=== PATIENT | female | born 1935 | race Caucasian/White ===

== ENCOUNTER → 2016-03-01 | Outpatient (CLI) | payer MEDICARE, OTHER ==
[~2016-03-01] MED LIST: ALPR0.5T PO; ASPI-983 PO; ATOR20TA66 PO; CALC-654 PO; CEFU250S PO; LAMO100T PO; LISI10TA2 PO; MAGN250T13 PO; MELA1TAB10 PO; METO-272 PO; MIDAZOLAM 5 MG/5 ML (VERSED) VIAL ONE; MULT-35 PO; NS (IVPB) 50 ML ONE; OMG1KC PO; QUET100T69 PO; REGADENOSON 0.4 MG/5 ML SYR (LEXISCAN) IV ONE; ceFAZolin 1,000 MG (ANCEF) VIAL ONE; fentaNYL INJECTION 100 MCG/2 ML AMP ONE
--- OUTSIDE RECORDS SUMMARY | 2016-03-01 08:24 | XMS REPORT ---
Author Author FUENTES DECKER Organization [employer] Address Unknown Phone Unavailable Care Team Providers Care Tongue Trimmer Name Role Phone FUENTES DECKER CP Unavailable Allergies No Known Allergies Problems Problem Type Condition Code Onset Dates Condition Status Problem Unspecified episodic mood disorder 296.90 Active Medications Medication Code System Code Instructions Start Date End Date Status Dosage Alprazolam [facility] [address]-11 0.5 MG Orally Once a day PRN anxiety. Melissa to sign for Taty April 18, 2014 1 tablet Results No Known Results Summary Purpose [employer] Submission
== END ==
LOC: CARD 08:18
PROVIDERS: ATTEND Internal Medicine Cardiovascular Disease
DX: I48.0 Paroxysmal atrial fibrillation (principal); I10 Essential (primary) hypertension; E78.2 Mixed hyperlipidemia; R07.9 Chest pain, unspecified; I65.23 Occlusion and stenosis of bilateral carotid arteries

== ENCOUNTER → 2016-03-17 | Outpatient (CLI) | payer MEDICARE, OTHER ==
[~2016-03-17] VITALS: Ht 160 cm; Wt 60.8 kg
[~2016-03-17] MED LIST changes: +CATHETER FLUSH 10 ML SYR IV PRN; -MIDAZOLAM 5 MG/5 ML (VERSED) VIAL ONE; -NS (IVPB) 50 ML ONE; -ceFAZolin 1,000 MG (ANCEF) VIAL ONE; -fentaNYL INJECTION 100 MCG/2 ML AMP ONE
[2016-03-17 13:19] VITALS: BP 130/58
--- NOTE | 2016-03-18 08:38 | STRESS TEST ---
PROCEDURE PHYSICIAN: KAYLI GONZALEZ DATE OF PROCEDURE: 03/17/2016 LEXISCAN MYOVIEW STRESS TEST REPORT: REFERRING PHYSICIAN: Dr. Jie Kelley INDICATION: 1. Coronary artery disease. 2. Hypertension. BASELINE HEART RATE: 60 BASELINE BLOOD PRESSURE: 130/58 BASELINE EKG: Sinus rhythm with no ischemic changes. IN SUMMARY: The patient was injected with 10.33 mCi of technetium 99 Myoview and the resting images were obtained. Then the patient received 0.4 mg of Lexiscan followed by 28.7 mCi of technetium 99 Myoview. Throughout the test, there were no EKG changes. The resting and stress images were reviewed and compared in the short axis, horizontal long axis, and vertical long axis views. Review of the images showed good radiotracer uptake with no ischemia or infarction on SPECT images. SSS is 3, SDS 3, TID value 1.09. On the gated images, the left ventricle appeared to be normal size with normal contractility. Calculated ejection fraction 82%. IN CONCLUSION: 1. The patient tolerated Lexiscan well. 2. No ischemia or infarction on SPECT images. 3. Normal left ventricular size with normal contractility. Calculated ejection fraction 82% Job ID: [id number] Dictated Date: 03/17/2016 16:14:22 Bender Machine Date: 03/18/2016 08:33:15 / vinay
== END ==
LOC: CARD 12:09
PROVIDERS: ATTEND Internal Medicine Cardiovascular Disease
DX: I48.0 Paroxysmal atrial fibrillation (principal); I10 Essential (primary) hypertension; E78.2 Mixed hyperlipidemia; R07.9 Chest pain, unspecified; I65.23 Occlusion and stenosis of bilateral carotid arteries
CPT/HCPCS: 78452; 93017

== ENCOUNTER 2016-06-02 07:00 | Day surgery (SDC) | payer MEDICARE, OTHER ==
[~2016-06-02] VITALS: Ht 160 cm; Wt 60.8 kg
[2016-06-02] VITALS (8 sets, daily range): BP systolic 104–160; BP diastolic 51–94
[2016-06-02] MEDS ORDERED: LIDOCAINE 1% INJ 20 ML (XYLOCAINE) VIAL ONE (07:02)
[2016-06-02] MEDS ORDERED: NS IV 1000 ML 1,000 ML ONE (07:02)
[2016-06-02] MEDS ORDERED: HEParin (CATH LAB) 1,000 ML IV ONE (07:02)
[2016-06-02] MEDS ORDERED: BACITRACIN INJECTION 50,000 UNIT, SODIUM CHLORIDE 0.9% IRRIGATIO 500 ML IR ONE ×2 (07:15)
[2016-06-02 07:40] LABS: BILIRUBIN,URINE NEGATIVE (NEGATIVE); KETONES,URINE NEGATIVE (NEGATIVE); LEUKOCYTE ESTERASE ,URINE NEGATIVE (NEGATIVE); NITRITE,URINE NEGATIVE (NEGATIVE); PH,URINE 7 (5-9); PROTEIN,URINE NEGATIVE (NEGATIVE); UROBILINOGEN,URINE NORMAL (NORMAL)
[2016-06-02 07:41] LABS: MEAN PLATELET VOLUME 11.7 FL (7.4-10.4); RED BLOOD COUNT 4.93 10^6/uL (4.35-5.85); RED CELL DISTRIBUTION WIDTH 13.8 % (10.0-14.5); WHITE BLOOD COUNT 6.8 10^3/uL (4.3-11.0)
[2016-06-02] MEDS ORDERED: NS IV 1000 ML 1,000 ML IV SCH ×2 (07:45→09:35)
[2016-06-02 07:50] LABS: PROTHROMBIN TIME PATIENT 13.2 SEC (12.2-14.7)
[2016-06-02 07:58] LABS: ALBUMIN 4.5 G/DL (3.2-4.5); BILIRUBIN,TOTAL 0.5 MG/DL (0.1-1.0); CALCIUM 9.7 MG/DL (8.5-10.1); CREATININE SERUM 1.03 MG/DL (0.60-1.30); TOTAL PROTEIN 6.9 G/DL (6.4-8.2)
--- NOTE | 2016-06-02 08:04 | Diagnostic Imaging Report ---
INDICATION: Pacemaker change. COMPARISON: 07/08/2008. FINDINGS: Pacemaker generator over the left chest is present. Leads appear intact in good position. Lungs are well-aerated. No infiltrate. Heart is not enlarged. No pulmonary edema. No pneumothorax. IMPRESSION: Satisfactory post pacemaker chest. No significant change since previous exam. Dictated by: Dictated on workstation # [id number]
[2016-06-02] MEDS ORDERED: LAMO100T PO (08:13)
[2016-06-02] MEDS ORDERED: QUET100T69 PO (08:13)
[2016-06-02] MEDS ORDERED: ATOR20TA66 PO (08:13)
[2016-06-02] MEDS ORDERED: LISI10TA2 PO (08:13)
[2016-06-02] MEDS ORDERED: METO-272 PO (08:13)
[2016-06-02] MEDS ORDERED: MULT-35 PO (08:18)
[2016-06-02] MEDS ORDERED: MAGN250T13 PO (08:18)
[2016-06-02] MEDS ORDERED: ASPI-983 PO (08:18)
[2016-06-02] MEDS ORDERED: ALPR0.5T PO (08:18)
[2016-06-02] MEDS ORDERED: MELA1TAB10 PO (08:18)
[2016-06-02] MEDS ORDERED: OMG1KC PO (08:18)
[2016-06-02] MEDS ORDERED: CALC-654 PO (08:18)
--- NOTE | 2016-06-02 08:38 | Cardiac Procedure Note-CS/ASA ---
Pre-Procedure Note Pre-Op Procedure Note H&P Reviewed The H&P was reviewed, patient examined and no changes noted. Date H&P Reviewed: Jun 02, 2016 Time H&P Reviewed: 08:37 Conscious Sedation Pre-Proced Time Reviewed: 08:37 ASA Class: 3 Airway Mallampati Classification: ([place]-apache appropriate class) I. II. III, IV Lungs Heart ASA score ASA 1: a normal healthy patient ASA 2: a patient with a mild systemic disease (mid diabetes, controlled hypertension, obesity x ASA 3: a patient with a severe systemic disease that limits activity (angina , COPD, prior Myocardial infarction) ASA 4: a patient with an incapacitating disease that is a constant threat to life (CHF, renal failure) ASA 5: a moribund patient not expected to survive 24 hrs. (ruptured aneurysm) ASA 6: a declared brain patient whose organs are being harvested. For emergent operations, add the letter E after the classification Grade 3 Sedation Plan: Analgesia, Amnesia, Plan communicated to team members, Discussed options with patient/fam, Discussed risks with patient/fam Note The patient is an appropriate candidate to undergo the planned procedure, sedation, and anesthesia. The patient immediately re-assessed prior to indication. KAYLI GONZALEZ MD Jun 02, 2016 08:38
[2016-06-02] MEDS ORDERED: NEO/POLY/BAC (NEOSPORIN) OINT 15 GM TUBE ONE (09:37)
[2016-06-02] MEDS ORDERED: lisINopril 10 MG (PRINIVIL) TAB PO PRN (09:45)
[2016-06-02] MEDS ORDERED: PATIENT MAY USE OWN MEDS, ALL PO SCH (09:45)
[2016-06-02] MEDS ORDERED: ALPRAZolam 0.5 MG (XANAX) TAB PO PRN (09:45)
[2016-06-02] MEDS ORDERED: CEFU250S PO (11:56)
[2016-06-02] MEDS ORDERED: OMEGA 3 (FISH OIL) 1000 MG CAP PO SCH (13:00)
--- NOTE | 2016-06-02 13:20 | Diagnostic Imaging Report ---
Portable AP view of the chest. INDICATION: Pacemaker placement. FINDINGS: There is a pacemaker with 3 cardiac leads seen. The heart size is at the upper limits of normal. The lungs appear hyperinflated with prominent interstitial markings that appear chronic suggestive of COPD. No effusion or pneumothorax. The mediastinum and tracee appear unremarkable. IMPRESSION: COPD. Borderline cardiac size. Dictated by: Dictated on workstation # [id number]
[2016-06-02] MEDS ORDERED: ceFAZolin INJECTION 1,000 MG in NS (IVPB) 50 ML IV SCH (14:00)
--- NOTE | 2016-06-02 16:15 | CARDIAC CATHETERIZATION ---
DATE OF SERVICE: 06/02/2016 DUAL CHAMBER PACEMAKER GENERATOR REPLACEMENT REPORT AND DISCHARGE SUMMARY BRIEF HISTORY: The patient is an 80-year-old lady with history of sick sinus syndrome, she is pacemaker dependent. Reached end of life for her pacemaker generator. She was scheduled for pacemaker generator replacement. PROCEDURE NOTE: After explaining the procedure to the patient, all pros and cons were explained. All questions were answered. The patient was placed in the cardiac catheterization laboratory. Conscious sedation achieved, local anesthesia applied to the chest and skin incision was made. The pacemaker was retrieved, the atrial and ventilator leads were exposed and interrogated and tested and they appear to be functioning normally. A new device was placed. I used ZALORA device Advisa MRI DR attached to the leads. Good sensing and capture activity. The skin pocket was irrigated with antibiotic solution. Then the pacemaker device was placed in the pocket and the pocket was closed on two layers of sutures. At the end of the procedure, no complication noted. CONCLUSION: Successful dual chamber pacemaker generator replacement with no complication. FINAL DIAGNOSES: 1. Sick sinus syndrome. 2. Cardiac pacemaker. 3. Hypertension. Job ID: [id number] DocumentID: [id number] Dictated Date: 06/02/2016 09:39:06 Air Traffic Controller Date: 06/02/2016 16:15:40 Dictated By: KAYLI GONZALEZ MD
[2016-06-02] MEDS ORDERED: QUEtiapine 100 MG (SEROquel) TAB IMMEDIATE RELEASE PO SCH (21:00)
[2016-06-02] MEDS ORDERED: ASPIRIN E.C. 81 MG (ECOTRIN) TAB PO SCH (21:00)
[2016-06-02] MEDS ORDERED: ATORVASTATIN 20 MG (LIPITOR) TABLET PO SCH (21:00)
[2016-06-02] MEDS ORDERED: MELATONIN 3 MG TABLET PO PRN (21:00)
[2016-06-03] MEDS ORDERED: MULTIVIT W/MINERALS TAB (THERAGRAN M) PO SCH (07:00)
[2016-06-03] MEDS ORDERED: MAGNESIUM OXIDE (MAG-OX)400 MG TAB PO SCH (08:00)
[2016-06-03] MEDS ORDERED: CALCIUM CARB + VIT D 600 MG (CALCARB + D) TAB PO SCH (09:00)
[2016-06-03] MEDS ORDERED: meTOproloL SUCCINATE 50 MG (TOPROL XL) TAB PO SCH (09:00)
== END 2016-06-02 15:46 | disposition home or self-care (01) ==
LOC: CATH 07:00 → ICU 10:10 → CATH 15:46 → ENPENDDIS 17:00
PROVIDERS: ATTEND Internal Medicine Cardiovascular Disease
DX: Z45.010 Encounter for checking and testing of cardiac pacemaker pulse generator [battery] (principal); I49.5 Sick sinus syndrome; I10 Essential (primary) hypertension; I48.0 Paroxysmal atrial fibrillation; E78.2 Mixed hyperlipidemia; F31.9 Bipolar disorder, unspecified; Z79.899 Other long term (current) drug therapy
CPT/HCPCS: 33228; 36415; 71010; 80053; 80061; 81000; 85027; 85610; 85730; 87081; 93005

== ENCOUNTER → 2021-11-25 | Outpatient (CLI) | payer MEDICARE, OTHER ==
[~2021-11-25] VITALS: Ht 157 cm; Wt 55.0 kg
[~2021-11-25] MED LIST changes: +ASPI-1238 PO; -ASPI-983 PO; -CATHETER FLUSH 10 ML SYR IV PRN; -LAMO100T PO; +LAMO100T5 PO; -LISI10TA2 PO; +LISI10TA25 PO; -METO-272 PO; +METO50TA7 PO; +QUET100T33 PO; -QUET100T69 PO
[2021-11-25] MEDS: CATHETER FLUSH 10 ML SYR IVP PRN ×3 (11:18→13:50)
[2021-11-25 13:03] VITALS: BP 140/75
--- NOTE | 2021-11-26 07:56 | Cardiology Stress Test Report ---
Stress Test Report Date of Procedure/Referring: Date of Procedure: Nov 25, 2021 PCP Jie Kelley DO Admitting Physician Admitting Physician: Attending Physician: Kayli Sidhu MD Baseline Heart Rate: 68 Baseline Blood Pressure: Blood Pressure Systolic: 140 Blood Pressure Diastolic: 75 Baseline Vitals Vital Signs Date Time Temp Pulse Resp B/P (MAP) Pulse Ox O2 Delivery O2 Flow Rate FiO2 11/25/21 13:03 63 16 140/75 (96) 95 Room Air Baseline EKG: Baseline EKG: LBBB, Paced Summary After explaining the procedure to the patient, she signed a consent and then brought to the stress nuclear laboratory. Patient received 0.4 mg Lexiscan for stress test, ECG, heart rate and blood pressure were monitored continuously. Resting and stress dose of radio tracer were injected, imaging was acquired and reviewed in short axis, horizontal long axis and vertical long axis views. TID: 1.18 SSS: 6 SDS: 1 EF: 78 1. Patient tolerated Lexiscan well 2. Baseline paced rhythm persisted during test 3. Fixed defect involving the mid to apical inferior wall with no significant ischemia 4. Normal left ventricular size, normal contractility, inferior wall abiodun normally, ejection fraction 78% KAYLI SIDHU MD Nov 26, 2021 07:56
== END ==
LOC: CARD 10:44
PROVIDERS: ATTEND Internal Medicine Cardiovascular Disease
DX: I25.10 Atherosclerotic heart disease of native coronary artery without angina pectoris (principal); I10 Essential (primary) hypertension
CPT/HCPCS: 78452; 93017; A9502